=== PATIENT | male | born 1950 | race African-American/Black ===

== ENCOUNTER 2016-08-28 12:27 | Emergency (ER) | payer MEDICAID, OTHER ==
[2016-08-28] VITALS (8 sets, daily range): BP systolic 125–163; BP diastolic 65–84
[~2016-08-28] VITALS: Ht 170.2 cm; Wt 65.8 kg
[~2016-08-28 12:27] MED LIST: NKM
[2016-08-28 13:46] LABS: BASOPHILS % (AUTO) 0.5 % (0.0-2.0); EOSINOPHILS % (AUTO) 0.7 % (0.0-3.0); MEAN CORPUSCULAR HEMOGLOBIN 31.8 PG (27.0-31.0); MEAN CORPUSCULAR HGB CONC 32.6 G/DL (32.0-36.0); MEAN CORPUSCULAR VOLUME 98 FL (80-99); MEAN PLATELET VOLUME 6.4 FL (6.5-10.1); MONOCYTES % (AUTO) 7.2 % (1.0-10.0); NEUTROPHILS % (AUTO) 55.5 % (45.0-75.0); PLATELET COUNT 247 K/UL (150-450); RED BLOOD COUNT 4.55 M/UL (4.70-6.10); RED CELL DISTRIBUTION WIDTH 12.5 % (11.6-14.8); WHITE BLOOD COUNT 10.5 K/UL (4.8-10.8)
[2016-08-28 14:03] LABS: ALANINE AMINOTRANSFERASE 9 U/L (3-41); ALBUMIN/GLOBULIN RATIO 1.7 (1.0-2.7); ANION GAP 10 (5-15); ASPARTATE AMINO TRANSFERASE 13 U/L (5-40); CALCIUM 9.7 mg/dL (8.6-10.2); CARBON DIOXIDE 27 mEQ/L (20-30); CHLORIDE 104 mEQ/L (98-107); GLOMERULAR FILTRATION RATE > 60 mL/min (>60); HEMOLYSIS 4; POTASSIUM 4.3 mEQ/L (3.4-4.9); SODIUM 141 mEQ/L (135-145); TOTAL PROTEIN 6.8 g/dL (6.6-8.7)
--- NOTE | 2016-08-28 14:07 | Diagnostic Imaging Report ---
Indication: DIZZY dizziness, vertigo Technique: spiral acquisitions obtained through the brain. Angled axial and coronal 5 x 5 mm slices were reconstructed. No IV contrast utilized. Radiation dose was minimized using automated exposure control Total dose length product 1383 mGycm. CTDIvol(s) 70 mGy Comparison: none FINDINGS: No acute hemorrhage or edema. No mass effect or midline shift. There is normal age-related enlargement of the ventricles and extra axial CSF spaces. There is minimal periventricular deep white matter ischemic change. Normal cr-white differentiation. Visualized orbits are unremarkable. Visualized sinuses are unremarkable. Intact calvarium. No significant interim change IMPRESSION: Mild chronic and age-related changes. Negative for acute intracranial bleed or mass effect The CT scanner at [facility] is accredited by the [employer] and the scans are performed using protocols designed to limit radiation exposure to as low as reasonably achievable to attain images of sufficient resolution adequate for diagnostic evaluation
--- NOTE | 2016-08-28 14:37 | Emergency Room Report ---
History of Present Illness General Chief Complaint: Dizziness Source: Patient Present Illness HPI Patient is 66-year-old male presented after having increased dizziness. Patient is having difficulty maintaining his balance. Patient stated that he had recently had left eye surgery for cataract. Patient had the been using topical eyedrops. He had not been vomiting. Patient stated that he felt like he might pass out. Patient had prior history of diabetes. He had not been having any fever. He denied any eye pain. Allergies: Coded Allergies: No Known Allergies (Unverified , 01/29/14) Patient History Past Medical History: see triage record Reviewed Nursing Documentation: PMH: Agreed, PSxH: Agreed Nursing Documentation-PMH Past Medical History: No History, Except For Hx Cardiac Problems: No - BILA CATARACT Review of Systems All Other Systems: negative except mentioned in HPI Physical Exam Vital Signs Date Time Temp Pulse Resp B/P Pulse Ox O2 Delivery O2 Flow Rate FiO2 08/28/16 12:31 97.9 54 20 148/86 99 Room Air Sp02 EP Interpretation: reviewed, normal General Appearance: normal inspection, well appearing, no apparent distress, alert, GCS 15 Head: atraumatic Eyes: bilateral eye PERRL ENT: normal ENT inspection, hearing grossly normal, normal voice Neck: normal inspection, full range of motion, supple, no bony tend Respiratory: normal inspection, lungs clear, normal breath sounds, no respiratory distress, no retraction, no wheezing Cardiovascular #1: regular rate, rhythm, no edema Gastrointestinal: normal inspection, normal bowel sounds, non tender, soft, no guarding, no hernia Genitourinary: no CVA tenderness Musculoskeletal: normal inspection, back normal, normal range of motion Neurologic: normal inspection, alert, oriented x3, responsive, certified anesthesiologist assistant III-XII nml as tested, speech normal Psychiatric: normal inspection, judgement/insight normal, mood/affect normal Skin: normal inspection, normal color, no rash Medical Decision Making Diagnostic Impression: Primary Impression: Bradycardia Additional Impression: Dizziness ER Course Patient presented for dizziness. Differential diagnoses included wasn't limited to bradycardia, arrhythmia, vertigo, CVA, among others.Because of complexity of patient's case laboratory testing and imaging studies were ordered. I EKG interpreted by me showed sinus bradycardia without acute ST or T wave changes. Rhythm strip showed normal sinus rhythm with a rate in the 40s without acute ST or T wave changes.CT the head was ordered of the patient's symptoms. CT read by radiologist showed no evidence of acute CVA or hemorrhageLaboratory testing was unremarkable. Patient was noted to have I EKG interpreted by me shows sinus bradycardia with rate in the 40s without acute ST or T wave changes noted. A troponin was noted normal due to patient's bradycardia as well as symptoms of dizziness patient is being placed in observation. The patient will need to continue her eyedrops which were noted not included beta blockers. The patient was discussed with Dr. Carbajal who agreed to accept the patient in transfer. Labs Test 08/28/16 13:17 08/28/16 14:00 White Blood Count 10.5 K/UL (4.8-10.8) Red Blood Count 4.55 M/UL (4.70-6.10) Hemoglobin 14.4 G/DL (14.2-18.0) Hematocrit 44.3 % (42.0-52.0) Mean Corpuscular Volume 98 FL (80-99) Mean Corpuscular Hemoglobin 31.8 PG (27.0-31.0) Mean Corpuscular Hemoglobin Concent 32.6 G/DL (32.0-36.0) Red Cell Distribution Width 12.5 % (11.6-14.8) Platelet Count 247 K/UL (150-450) Mean Platelet Volume 6.4 FL (6.5-10.1) Neutrophils (%) (Auto) 55.5 % (45.0-75.0) Lymphocytes (%) (Auto) 36.0 % (20.0-45.0) Monocytes (%) (Auto) 7.2 % (1.0-10.0) Eosinophils (%) (Auto) 0.7 % (0.0-3.0) Basophils (%) (Auto) 0.5 % (0.0-2.0) Sodium Level 141 mEQ/L (135-145) Potassium Level 4.3 mEQ/L (3.4-4.9) Chloride Level 104 mEQ/L (98-107) Carbon Dioxide Level 27 mEQ/L (20-30) Anion Gap 10 (5-15) Blood Urea Nitrogen 13 mg/dL (7-23) Creatinine 1.0 mg/dL (0.7-1.2) Estimat Glomerular Filtration Rate > 60 mL/min (>60) Glucose Level 89 mg/dL (74-106) Calcium Level 9.7 mg/dL (8.6-10.2) Total Bilirubin 0.3 mg/dL (0.0-1.2) Aspartate Amino Transf (AST/SGOT) 13 U/L (5-40) Alanine Aminotransferase (ALT/SGPT) 9 U/L (3-41) Alkaline Phosphatase 54 U/L (40-129) Total Protein 6.8 g/dL (6.6-8.7) Albumin 4.3 g/dL (3.5-5.2) Globulin 2.5 g/dL Albumin/Globulin Ratio 1.7 (1.0-2.7) EKG Diagnostic Results Rate: normal, tachycardiac Rhythm: NSR ST Segments: no acute changes Rhythm Strip Diag. Results EP Interpretation: yes Rhythm: no PVC's, no ectopy, other - sinus bradycardia Last Vital Signs Date Time Temp Pulse Resp B/P Pulse Ox O2 Delivery O2 Flow Rate FiO2 08/28/16 13:12 48 15 126/69 95 Room Air 08/28/16 12:57 98.2 Status: unchanged Disposition: XFER SHT-TRM HOSP Condition: Serious Referrals: NON PHYSICIAN (PCP) Giancarlo Dean Aug 28, 2016 14:37
[2016-08-28] MEDS ORDERED: PREDNISOLONE ACE5 ML LEFT EYE (15:30)
[2016-08-28] MEDS ORDERED: VIGAMOX1 DROP LEFT EYE (15:30)
[2016-08-28] MEDS ORDERED: TAMSULOSIN HCL0.4 MG ORAL (16:40)
[2016-08-28 17:31] LABS: TROPONIN I < 0.30 ng/mL (<=0.30)
== END 2016-08-28 19:17 | disposition short-term general hospital (02) ==
LOC: EMR 12:57
DX: R42 Dizziness and giddiness (principal); R00.1 Bradycardia, unspecified
CPT/HCPCS: 36415; 70450; 80053; 80300; 82962; 84484; 85025; 93005